=== PATIENT | male | born 1975 | race Caucasian/White ===

== ENCOUNTER 2020-09-25 11:31 | Day surgery (SDC) | payer MEDICAID ==
[~2020-09-25] VITALS: Ht 165.1 cm; Wt 81.6 kg
[2020-09-25] MEDS ORDERED: IOHEXOL-350 100 ML VIAL IV ONE (11:42)
[2020-09-25] MEDS ORDERED: IV NS 0.9% 250 ML IV ONE (11:42)
[2020-09-25] MEDS ORDERED: METOPROLOL TARTRATE INJ 5 MG/5 ML AMPUL ONE (11:50)
[2020-09-25] MEDS: METOPROLOL TARTRATE INJ 5 MG/5 ML AMPUL IVP PRN ×4 (11:55→12:07)
[2020-09-25] MEDS ORDERED: NITROGLYCERIN 0.4 MG/TAB BOTTLE SL ONE (12:00)
[2020-09-25] MEDS ORDERED: IV NS 0.9% 500 ML IV PRN (12:00)
[2020-09-25 12:07] VITALS: BP 110/65
== END 2020-09-25 23:59 | disposition home or self-care (01) ==
LOC: CATHLAB 11:31
PROVIDERS: ATTEND Internal Medicine Interventional Cardiology
DX: J98.4 Other disorders of lung (principal); J84.10 Pulmonary fibrosis, unspecified; M47.819 Spondylosis without myelopathy or radiculopathy, site unspecified
CPT/HCPCS: 75574; J3490; J7050; Q9967